=== PATIENT | female | born 1960 | race Caucasian/White ===

== ENCOUNTER → 2017-04-04 | Outpatient (CLI) | payer MEDICAID ==
[~2017-04-04] MED LIST: ACHD5005 PO; ALBU17AE3 IH; CYCL10TA9 PO; FISH OIL 1,2001 EAC1 PO; FLUO40CA PO; FLUT16SP22 NS; LISI1TAB PO; LORA1TAB PO; MOME13HF2 IH; MULT-874 PO; NAPR-689 PO; OMEP20CA12 PO
--- NOTE | 2017-04-04 11:29 | Diagnostic Imaging Report ---
PROCEDURE: US Gallbladder. TECHNIQUE: Multiple real-time grayscale images were obtained over the right upper quadrant in various projections. INDICATION: Abdominal pain. FINDINGS: The pancreas is largely obscured. The liver is fairly homogeneous with no focal masses seen. It measures at upper limits of normal at 18 cm craniocaudally. There is no stone or wall thickening noted in the gallbladder. No pericholecystic fluid. The CBD is obscured. The right kidney is 9.4 cm in length with no hydronephrosis or focal lesion. Sonographic Payton sign reportedly negative. No fluid collection in the upper right abdomen seen. IMPRESSION: No gallstones or evidence of cholecystitis. Dictated by: Dictated on workstation # [id number]
== END ==
LOC: RAD 06:51
PROVIDERS: ATTEND Surgery
DX: R10.9 Unspecified abdominal pain (principal)
CPT/HCPCS: 76705

== ENCOUNTER → 2017-10-31 | Outpatient (CLI) | payer MEDICAID ==
--- NOTE | 2017-10-31 12:48 | Diagnostic Imaging Report ---
INDICATION: Routine screening. COMPARISON: Comparison is made with prior study from 06/01/2013. TECHNIQUE: 2D and 3D bilateral screening mammography was performed with computer-aided detection (CAD) system. FINDINGS: Scattered fibroglandular densities are identified bilaterally. There are benign calcifications bilaterally. No mass or malignant appearing microcalcifications are seen. The axillae are unremarkable. IMPRESSION: No mammographic features suspicious for malignancy are identified. ACR BI-RADS Category 2: Benign findings. Result letter will be mailed to the patient. Note: At least 10% of breast cancer is not imaged by mammography. Dictated by: Dictated on workstation # [id number]
== END ==
LOC: RAD 09:46
PROVIDERS: ATTEND Nurse Practitioner Family
DX: Z12.31 Encounter for screening mammogram for malignant neoplasm of breast (principal)
CPT/HCPCS: 77067

== ENCOUNTER → 2018-12-22 | Outpatient (CLI) | payer MEDICARE, MEDICAID ==
--- NOTE | 2018-12-22 11:45 | Diagnostic Imaging Report ---
MRI RT UPPER EXT JOINT W/O TECHNIQUE: Multiplanar, multisequence MR imaging of the right shoulder was performed without contrast. COMPARISON: None available. INDICATION: Right shoulder pain. FINDINGS: Rotator cuff: Full-thickness incomplete tear of the supraspinatus is retracted at the level of the mid humeral head. Mild fatty atrophy of the supraspinatus is present. Infraspinatus has tendinopathy present and superimposed low-grade partial-thickness articular sided tearing. Mild fatty atrophy of the infraspinatus is also present. Subscapularis has moderate tendinopathy present without superimposed tear. Teres minor is normal. Glenoid labrum: Potential mild intrasubstance degenerative tearing in the superior labrum. No chondral labral separation or para-labral cyst. Long head of biceps: Long head of biceps is normally positioned within the bicipital groove. The intracapsular segment is intact. Bones and cartilage: Humeral head is normal in morphology without fracture or focal osseous lesion. Probable subcortical cyst or focus of sclerosis in the mid-posterior central aspect of the glenoid. 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 Soft tissues: Moderate-sized glenohumeral joint effusion with majority of the fluid decompressed into the subcoracoid recess. No MRI findings to suggest adhesive capsulitis. Fluid in the subacromial subdeltoid space is compatible with full-thickness rotator cuff tear. IMPRESSION: 1. Full-thickness incomplete tear of the supraspinatus has retracted fibers to the mid humeral head. Mild to moderate fatty atrophy of the muscle belly is present. 2. Low-grade partial-thickness articular sided tear of the infraspinatus. 3. Hypertrophic degenerative changes of the acromioclavicular joint which could predispose to subacromial impingement. 4. Potential degenerative intrasubstance tearing of the superior glenoid labrum. Dictated by: Dictated on workstation # [id number]
== END ==
LOC: RAD 09:19
PROVIDERS: ATTEND Nurse Practitioner Family
DX: M75.111 Incomplete rotator cuff tear or rupture of right shoulder, not specified as traumatic (principal); M19.011 Primary osteoarthritis, right shoulder; S43.491A Other sprain of right shoulder joint, initial encounter
CPT/HCPCS: 73221

== ENCOUNTER 2022-03-31 06:21 | Outpatient (CLI) | payer MEDICARE, MEDICAID ==
[~2022-03-31] VITALS: Ht 165.1 cm; Wt 98.9 kg
[2022-03-31] MEDS ORDERED: IBUP-1780 PO (15:12)
[2022-03-31] MEDS ORDERED: MV-M1TAB20 PO (15:12)
[2022-03-31] MEDS ORDERED: ATOR10TA66 PO (15:12)
[2022-03-31] MEDS ORDERED: ASCO500T16 PO (15:12)
[2022-03-31] MEDS ORDERED: LISI10TA25 PO (15:12)
[2022-03-31] MEDS ORDERED: DULO60CA59 PO (15:12)
[2022-03-31] MEDS ORDERED: ESOM40CA52 PO (15:12)
[2022-03-31] MEDS ORDERED: GLYC10.7 IH (15:12)
[2022-03-31] MEDS ORDERED: MELO15TA39 PO (15:12)
== END 2022-03-31 15:13 | disposition home or self-care (01) ==
LOC: PREOP 06:21
PROVIDERS: ATTEND Surgery
DX: Z01.818 Encounter for other preprocedural examination (principal)

== ENCOUNTER 2022-04-13 09:31 | Day surgery (SDC) | payer MEDICARE, MEDICAID ==
[~2022-04-13] VITALS: Ht 177.8 cm; Wt 98.9 kg
[~2022-04-13 09:31] MED LIST changes: +ASCO500T16 PO; +ATOR10TA66 PO; +DULO60CA59 PO; +ESOM40CA52 PO; +GLYC10.7 IH; +IBUP-1780 PO; +LISI10TA25 PO; +MELO15TA39 PO; +MV-M1TAB20 PO
[2022-04-13] MEDS ORDERED: LACTATED RINGERS 1,000 ML IV STA (09:32)
[2022-04-13] MEDS ORDERED: HURRICAINE EXT TUBE (BENZOCAINE) XX PRN (09:45)
[2022-04-13 09:52] VITALS: BP 129/98
[2022-04-13] MEDS ORDERED: MIDAZOLAM 2 MG/2 ML (VERSED) VIAL ONE (10:30)
[2022-04-13] MEDS ORDERED: PROPOFOL INJECTION 50 ML IV ONE (10:30)
[2022-04-13] MEDS ORDERED: RT-ALBUTEROL SULF 2.5 MG/3 ML PRE-MIX VIAL ONE (11:00)
--- NOTE | 2022-04-13 11:17 | Discharge Inst-Simple/Standard ---
Discharge Inst-Standard Reconcile Patient Problems Problems Reviewed?: Yes Patient Instructions/Follow Up Plan of Care/Instructions/FU: F/u 2 weeks, Arabella Activity as Tolerated: Yes Discharge Diet: Regular Diet MARITO DELCID DO Apr 13, 2022 11:16
[2022-04-13 11:22] VITALS: BP 124/80
[2022-04-13 11:25] VITALS: BP 138/73
[2022-04-13] MEDS ORDERED: LACTATED RINGERS 1,000 ML IV ONE (11:57)
[2022-04-13 12:00] VITALS: BP 124/80
--- NOTE | 2022-04-13 13:45 | Anesthesia-General Post-Op ---
MAC Patient Condition Mental Status/LOC: Same as Preop Cardiovascular: Satisfactory Nausea/Vomiting: Absent Respiratory: Satisfactory Pain: Controlled Complications: Absent Post Op Complications Complications None Follow Up Care/Instructions Patient Instructions None needed. Anesthesiology Discharge Order Discharge Order Patient is doing well, no complaints, stable vital signs, no apparent adverse anesthesia problems. No complications reported per nursing. JERROD UNDERWOOD CRNA Apr 13, 2022 13:45
--- NOTE | 2022-04-13 20:21 | OPERATIVE REPORT ---
DATE OF SERVICE: 04/13/2022 PREOPERATIVE DIAGNOSIS: Gastroesophageal reflux disease and history of polyps. POSTOPERATIVE DIAGNOSIS: Moderate to large hiatal hernia, normal colon. PROCEDURE: EGD with biopsies, colonoscopy. SURGEON: Marito Bell DO ANESTHESIA: Per DIRECTOR RELIGIOUS EDUCATION. ESTIMATED BLOOD LOSS: None. COMPLICATIONS: None. INDICATIONS: The patient is a 61-year-old female with GERD symptoms and history of polyps. She understands risks and benefits of procedure and wished to proceed. Consent was signed in the chart. DESCRIPTION OF PROCEDURE: The patient was taken to the endoscopy suite, placed in left lateral recumbent position. Timeout was performed. Scope was inserted into the mouth, down the esophagus, stomach and into the duodenum without difficulty. No polyps, masses or ulcerations within the duodenum. Scope was slowly retracted back to stomach where it was further insufflated. Slight erythematous changes in the antrum. Biopsy of the antrum was obtained. Scope was retroflexed noting a moderate to large sized hiatal hernia, no other pathology. Scope was returned to its normal position, slowly withdrawn to distal esophagus. Biopsy of GE junction was obtained. Scope was slowly retracted back until completely removed. Digital rectal exam was performed. No palpable polyps, masses or ulcerations. There were no palpable polyps, masses or ulcerations. Scope was inserted in the rectum and advanced all the way to cecum. Prep was adequate with irrigation and suction. No polyps, masses or ulcerations to the cecum, ascending, transverse, descending and sigmoid colon. Once in the rectum, scope was retroflexed noting no other pathology. Scope was returned to its normal position, slowly withdrawn until completely removed. The patient tolerated the procedure well without any complications. She was taken to recovery room in stable condition. RECOMMENDATIONS: The patient will need repeat colonoscopy in 5 years. We will discuss biopsy results in 2 weeks. We will continue on current medications. Any problems before that be seen at that time. CC: Dr. Scott - requested, unable to deliver. Job ID: [id number] DocumentID: [id number] Dictated Date: 04/13/2022 11:16:45 Inspector Eyeglass Date: 04/13/2022 20:20:42 Dictated By: MARITO BELL DO
== END 2022-04-13 12:10 | disposition home or self-care (01) ==
LOC: ENDO 09:31
PROVIDERS: ATTEND Surgery
DX: Z12.11 Encounter for screening for malignant neoplasm of colon (principal); K44.9 Diaphragmatic hernia without obstruction or gangrene; K21.9 Gastro-esophageal reflux disease without esophagitis; E66.9 Obesity, unspecified; Z68.31 Body mass index [BMI] 31.0-31.9, adult; Z86.010 Personal history of colon polyps; Z87.891 Personal history of nicotine dependence; Z79.899 Other long term (current) drug therapy
CPT/HCPCS: 43239; G0105

== ENCOUNTER → 2023-01-17 | Outpatient (CLI) | payer MEDICARE, MEDICAID ==
[~2023-01-17] MED LIST changes: +BARIUM for suspension 96% w/w (Vanilla Silq Medium Density) PO ONE; +BARIUM for suspension 98% w/w (Vanilla Silq High Density) PO ONE
--- NOTE | 2023-01-17 14:28 | Diagnostic Imaging Report ---
INDICATION: Hiatal hernia with increasing pain. Patient ingested effervescent crystals as well as thin and thick barium and imaging of the esophagus was performed in multiple obliquities. 31 images were obtained. 1.2 minutes of fluoroscopic time was utilized. The reference air kerma is 31.7 mGy. Esophagus has a fairly smooth contour. No definite mass or stricture is identified. Patient does have a very large hiatal hernia. Large portion of the stomach does appear to be in the lower chest. GE junction does appear to be below the level of the hemidiaphragm and findings are suggestive of a large paraesophageal hernia. No obstruction is seen. There is emptying into the small bowel. No definite reflux was identified. IMPRESSION: Large paraesophageal hiatal hernia. Dictated by: Dictated on workstation # [id number]
== END ==
LOC: RAD 10:32
PROVIDERS: ATTEND Surgery
DX: K44.9 Diaphragmatic hernia without obstruction or gangrene (principal)
CPT/HCPCS: 74220

== ENCOUNTER 2023-02-09 05:50 | Outpatient (CLI) | payer MEDICARE, MEDICAID ==
[~2023-02-09] VITALS: Ht 165 cm; Wt 86.6 kg
[~2023-02-09 05:50] MED LIST changes: -BARIUM for suspension 96% w/w (Vanilla Silq Medium Density) PO ONE; -BARIUM for suspension 98% w/w (Vanilla Silq High Density) PO ONE
[2023-02-09] MEDS ORDERED: PHEN-827 PO (13:41)
[2023-02-09] MEDS ORDERED: VNL75T PO (13:41)
[2023-02-09] MEDS ORDERED: CHOL200025 PO (13:42)
== END 2023-02-09 13:51 | disposition home or self-care (01) ==
LOC: PREOP 05:50
PROVIDERS: ATTEND Surgery
DX: Z01.818 Encounter for other preprocedural examination (principal)

== ENCOUNTER 2023-02-21 08:50 | Day surgery (SDC) | payer MEDICARE, MEDICAID ==
[~2023-02-21] VITALS: Ht 165.1 cm; Wt 86.6 kg
[~2023-02-21 08:50] MED LIST changes: +CHOL200025 PO; +PHEN-827 PO; +VNL75T PO
[2023-02-21] MEDS ORDERED: LACTATED RINGERS 1,000 ML 1,000 ML IV STA (08:52)
[2023-02-21] MEDS ORDERED: HURRICAINE EXT TUBE (BENZOCAINE) XX PRN (09:00)
[2023-02-21] MEDS ORDERED: HURRICAINE EXT TUBE (BENZOCAINE) ONE (09:09)
[2023-02-21] MEDS ORDERED: LACTATED RINGERS 1,000 ML 1,000 ML IV ONE (09:09)
--- NOTE | 2023-02-21 09:20 | Progress Note-Pre Operative ---
Pre-Operative Progress Note Date of Available H&P: Feb 02, 2023 Date H&P Reviewed: Feb 21, 2023 Time H&P Reviewed: 09:18 History & Physical: H&P Reviewed, Patient Examed, No changes noted Pre-Operative Diagnosis: Epigastric pain, Hiatal hernia CARO FONG DO Feb 21, 2023 09:20
[2023-02-21] MEDS ORDERED: MIDAZOLAM INJ 2 MG/2 ML VIAL ONE (09:30)
[2023-02-21] MEDS ORDERED: proPOfol INJECTION 200 MG/20 ML VIAL IV ONE (09:30)
[2023-02-21 09:50] VITALS: BP 143/80
--- NOTE | 2023-02-21 09:54 | Progress Note-Post Operative ---
Post-Operative Progess Note Surgeon (s)/Special Distribution Clerk (s) Surgeon CARO FONG DO Special Distribution Clerk: none Pre-Operative Diagnosis Epigastric pain, Hiatal hernia Post-Operative Diagnosis Hiatal hernia Gastritis Procedure & Operative Findings Date of Procedure 02/21/23 Procedure Performed/Findings EGD with biopsy PROCEDURE NOTE: After informed consent was obtained, the patient was brought to the endoscopy suite, placed in bed in left lateral decubitus position. She was administered IV sedation by the VEGETABLE FARMER who then monitored vitals the entire time, heart rate, blood pressure and pulse ox and the scope was inserted down the mouth through the esophagus into the stomach. Pushed into the stomach, pushed past the antrum into the duodenum. Duodenum looked good. Pulled back, the stomach almost seemed twisted, because it gave me a weird angle. I did a biopsy of the antrum, then retroflexed the scope and saw a hiatal hernia. I took a picture of this, but was trying to determine if there was a larger hernia and I really couldn't tell. I then pulled the scope into the GE junction, tried to take another picture of the hiatal hernia and then did a biopsy of the GE junction. Pushed the scope back into the stomach, suctioned all the air out of the stomach. At this point pulled the scope up the esophagus and out the mouth. The patient tolerated the procedure, and she recovered in endoscopy suite. Anesthesia Type IV sedation by VEGETABLE FARMER Estimated Blood Loss Estimated blood loss (mL): scant Specimens/Packing Specimens Removed antral bx GE jxn bx CARO FONG DO Feb 21, 2023 09:54
[2023-02-21 09:55] VITALS: BP 116/79
--- NOTE | 2023-02-21 09:55 | Endoscopy Discharge Instruct ---
Endo Procedure/Findings Findings 1.: Gastritis 2.: Hiatal Hernia Discharge Instructions - Activity: You might feel a little sleepy until tomorrow. This is due to the medicine you received to relax you. Until tomorrow, you should: NOT drive a car, operate machinery or power tools. NOT drink any alcoholic beverages. NOT make any important decisions or sign importortant papers. Do not return to work until tomorrow, unless otherwise instructed. Resume previous activities tomorrow. Diet: Start by taking liquids. If you tolerate liquids, advance to solid food. 1.: EGD in 3 years Notify Physician - If you experience excessive bleeding, unusual abdominal pain, fever, or chest pain, contact your doctor immediately. Follow-Up: Other Follow up in my office in one week CARO FONG DO Feb 21, 2023 09:55
[2023-02-21 10:26] VITALS: BP 103/73
[2023-02-21 11:18] VITALS: BP 103/73
--- NOTE | 2023-02-21 14:49 | Anesthesia-General Post-Op ---
MAC Patient Condition Mental Status/LOC: Same as Preop Cardiovascular: Satisfactory Nausea/Vomiting: Absent Respiratory: Satisfactory Pain: Controlled Complications: Absent Post Op Complications Complications None Follow Up Care/Instructions Patient Instructions None needed. Anesthesiology Discharge Order Discharge Order Patient is doing well, no complaints, stable vital signs, no apparent adverse anesthesia problems. No complications reported per nursing. FLIP PICKARD CRNA Feb 21, 2023 14:49
== END 2023-02-21 11:30 | disposition home or self-care (01) ==
LOC: ENDO 08:50
PROVIDERS: ATTEND Surgery
DX: K44.9 Diaphragmatic hernia without obstruction or gangrene (principal); K29.50 Unspecified chronic gastritis without bleeding; K31.89 Other diseases of stomach and duodenum; E66.9 Obesity, unspecified; Z87.891 Personal history of nicotine dependence; Z79.899 Other long term (current) drug therapy; Z68.31 Body mass index [BMI] 31.0-31.9, adult